=== PATIENT | male | born 1945 | race Caucasian/White ===

== ENCOUNTER 2016-10-01 12:39 | Emergency (ER) | payer MEDICARE ==
[~2016-10-01] VITALS: Ht 160 cm; Wt 80.0 kg
[~2016-10-01 12:39] MED LIST: ADVA250A INH; AMLO5TAB96 PO; ASPI81TA82 PO; ATEN-102 PO; FOLI1TAB PO; PRAV20TA67 PO; PROVENTIL HFA INH; THEO200T27 PO; THIA100T PO; VITA100020 IJ
[2016-10-01 12:41] VITALS: BP 177/69; PULSE 63; RESP 15; TEMP 98.2; O2SAT 98
--- NOTE | 2016-10-01 13:03 | PD ---
HPI Chief Complaint: Foreign Body Time Seen by Provider: 13:01 Travel History International Travel<30 days: No Contact w/Intl Traveler<30days: No Traveled to known affect area: No History of Present Illness HPI 71-year-old male presents to emergency department with question foreign body in his right thigh. Patient gives himself B12 shots every 2 weeks. He states he gave himself a shot today and was unsure where the needle went. He denies any specific pain or other problems currently. Upon further inspection of the syringe the patient brought with him it is noted that has automatically tractable needle in the syringe. Patient has no known drug allergies. PFSH Past Medical History Arthritis: Yes (FEET) Asthma: Yes Cardiovascular Problems: Yes High Cholesterol: Yes Endocrine: No Genitourinary: No Hypertension: Yes Immune Disorder: No Musculoskeletal: Yes Neurologic: No Respiratory: Yes Past Surgical History Other Surgery: No Social History Alcohol Use: Yes (WINE ON WEEKENDS) Tobacco Use: No Substance Use: No Allergies-Medications (Allergen,Severity, Reaction): Coded Allergies: No Known Allergies (Verified , 01/04/13) Reported Meds & Prescriptions Reported Meds & Active Scripts Active Reported Thiamine HCl 100 Mg Tab 100 Mg PO DAILY Folate (Folic Acid) 1 Mg Tab 1 Mg PO DAILY Atenolol 50 Mg Tab 50 Mg PO BID Vitamin B-12 (Cyanocobalamin) 1,000 Mcg Inj 1,000 Mcg IJ EVERY 2 WEEKS Pravachol (Pravastatin Sodium) 20 Mg Tab 20 Mg PO HS Proventil Hfa (Albuterol Sulfate) 6.7 Gm Aer 2 Puff INH DIRECTED PRN DAILY PRN FOR SOB Advair Diskus 250/50 (Salmeterol Xinafoate/Fluticasone) 250 Mcg/50 Mcg Inhp 1 Puff INH DAILY Aspir-81 (Aspirin) 81 Mg Tab 81 Mg PO DAILY Theophylline Er (Theophylline) 200 Mg Tab 400 Mg PO DAILY Norvasc (Amlodipine Besylate) 5 Mg Tab 5 Mg PO DAILY Review of Systems Except as stated in HPI: all other systems reviewed are Neg General / Constitutional: No: Fever Eyes: No: Visual changes HENT: No: Headaches Cardiovascular: No: Chest Pain or Discomfort Respiratory: No: Shortness of Breath Gastrointestinal: No: Abdominal Pain Genitourinary: No: Dysuria Musculoskeletal: No: Pain Skin: No Rash Neurologic: No: Weakness Psychiatric: No: Depression Endocrine: No: Polydipsia Hematologic/Lymphatic: No: Easy Bruising Physical Exam Narrative GENERAL: No acute distress. SKIN: Warm and dry. Normal color. Normal turgor. HEAD: Atraumatic. Normocephalic. EYES: Pupils equal and round. No scleral icterus. No injection or drainage. ENT: No nasal bleeding or discharge. Mucous membranes pink and moist. Pharynx is clear. NECK: Trachea midline. Neck is supple CARDIOVASCULAR: Regular rate and rhythm. RESPIRATORY: No accessory muscle use. Clear to auscultation. Breath sounds equal bilaterally. MUSCULOSKELETAL: Extremities without clubbing, cyanosis, or edema. No obvious deformities. NEUROLOGICAL: Awake and alert. No obvious cranial nerve deficits. Motor grossly within normal limits. Five out of 5 muscle strength in the arms and legs. Normal speech. PSYCHIATRIC: Appropriate mood and affect; insight and judgment normal. Data Data Last Documented VS Vital Signs Date Time Temp Pulse Resp B/P Pulse Ox O2 Delivery O2 Flow Rate FiO2 10/01/16 12:41 98.2 63 15 177/69 98 MDM Medical Decision Making Medical Screen Exam Complete: Yes Emergency Medical Condition: Yes Differential Diagnosis B12 insufficiency. Question foreign body from syringe. B12 anemia. Narrative Course A medical screening exam was performed: At the time of evaluation the presenting medical condition was determined not to be of an emergent nature. The patient was given the option of receiving additional care, but declined. Patient was given options for additional community resources from which to obtain care. The Patient Has Been advised to seek medical attention for their presenting complaint. The patient has been advised to return to the ER at any time if an emergent condition develops. Condition: Stable Carlos Houston Oct 01, 2016 13:03
== END 2016-10-01 13:12 | disposition left against medical advice (07) ==
LOC: NEPK 12:39
DX: Z53.21 Procedure and treatment not carried out due to patient leaving prior to being seen by health care provider (principal)
CPT/HCPCS: 99281